=== PATIENT | female | born 1995 | race Caucasian/White ===

== ENCOUNTER 2025-05-22 19:18 | Emergency (ER) | payer OTHER ==
[2025-05-22 19:57] LABS: Pregnancy Test - Urine (BHCG) Negative (Negative); Pregu Control Background? CLEAR/WHITE (CLR/WHITE); Pregu Control Bar Appear? YES (CONTROL BAR)
[2025-05-22 19:58] LABS: Bacteria/HPF 1+ HPF (None Seen); CAUTI Indications for Culture Pelvic or flank pain; Glucose, Urine (Dipstick) Normal (Negative); Leukocyte Negative Leu/uL (Negative); Protein, Urine (Dipstick) Negative (Neg-Trace); RBC/HPF 0-3 HPF (0-3); Specific Gravity, Urine 1.015 (1.002-1.036); WBC/HPF None Seen HPF (0-3)
[2025-05-22 20:00] LABS: Urine Culture Reflex No No
[2025-05-22] MEDS ORDERED: Ketorolac Tromethamine 30 MG (1 mL) VIAL ONE (20:34)
[2025-05-22] MEDS ORDERED: Cyclobenzaprine 10 MG TAB ONE (20:34)
[2025-05-22] MEDS ORDERED: Acetaminophen 500 MG TAB ONE (20:34)
[2025-05-22] MEDS ORDERED: Dexamethasone 10 MG/ML VIAL ONE (20:34)
[2025-05-22] MEDS ORDERED: Gabapentin 300 MG CAP ONE (20:39)
== END 2025-05-22 22:05 | disposition home or self-care (01) ==
LOC: ERS 19:18
DX: S39.012A Strain of muscle, fascia and tendon of lower back, initial encounter (principal); G43.909 Migraine, unspecified, not intractable, without status migrainosus; M26.609 Unspecified temporomandibular joint disorder, unspecified side; L40.0 Psoriasis vulgaris; G62.9 Polyneuropathy, unspecified; N94.89 Other specified conditions associated with female genital organs and menstrual cycle; M35.7 Hypermobility syndrome; F17.290 Nicotine dependence, other tobacco product, uncomplicated; F17.210 Nicotine dependence, cigarettes, uncomplicated; X50.1XXA Overexertion from prolonged static or awkward postures, initial encounter; Y93.9 Activity, unspecified
CPT/HCPCS: 81001; 81025; 96372; 99283; J1100; J1885